=== PATIENT | female | born 1940 | race Caucasian/White ===

== ENCOUNTER 2017-06-24 08:10 | Inpatient (IN) | payer OTHER, MEDICARE ==
[2017-06-16 09:19] VITALS: BMI 33.0
[2017-06-26 06:38] VITALS: BP 149/70; PULSE 94; TEMP 98.9
== END 2017-06-26 13:05 | disposition home or self-care (01) | DRG 470 ==
LOC: FM/S 08:10
PROVIDERS: ADMIT Orthopaedic Surgery; ATTEND Orthopaedic Surgery
PROC: 0SRC0J9 Replacement of Right Knee Joint with Synthetic Substitute, Cemented, Open Approach (ICD-10-PCS; principal; 2017-06-24)
PROC: 8E0Y0CZ Robotic Assisted Procedure of Lower Extremity, Open Approach (ICD-10-PCS; 2017-06-24)
DX: M17.11 Unilateral primary osteoarthritis, right knee (principal)
CPT/HCPCS: 36415; 73560-TC-RT-FY; 85027; 94760; 97116-GP; 97162-GP